=== PATIENT | male | born 1985 | race Caucasian/White ===

== ENCOUNTER 2020-02-23 05:47 | Day surgery (SDC) | payer OTHER ==
[~2020-02-23] VITALS: Ht 177.8 cm; Wt 74.8 kg
--- NOTE | ~2020-02-23 | OP ---
PATIENT NAME: MONO FRANCO MEDICAL RECORD: [id number] :81 LOCATION:D.[facility] ADMISSION DATE: SURGEON: ELIER BRUSH MD DATE OF OPERATION: 02/23/2020 PREOPERATIVE DIAGNOSIS: Rectal cancer, in need of IV access for chemotherapy. POSTOPERATIVE DIAGNOSIS: Rectal cancer, in need of IV access for chemotherapy. PROCEDURES: 1. Placement of left infraclavicular PowerPort under fluoroscopic guidance. 2. Immediate surgeon interpretation of the fluoroscopic images. SURGEON: Elier Brush MD EDGE SETTER: None. BLOOD LOSS: Minimal. ANESTHESIA: General. COMPLICATIONS: None. The risks, possible complications and alternatives to the procedure were explained to the patient. He elects to proceed. The discussion specifically included, but was not limited to, bleeding requiring emergency reoperation, infection, possibility that the port could flip, it could break, it could clot off or become infected. No radiologist was present for this procedure. Static fluoroscopic images were obtained and are kept in the PACS system. The surgeon interpretation of the radiographic images was dictated within the body of this operative note. OPERATIVE COURSE: The patient was conveyed to the operating room electively on 02/23/2020. General anesthesia was induced by the anesthesia staff. The left neck and left chest was sterilely prepped and draped. Under ultrasonographic guidance, I percutaneously accessed the left internal jugular vein in an antegrade fashion. A guidewire was passed easily. A small skin katarzyna was accomplished. A counterincision was accomplished in the left infraclavicular anterior-superior chest. Through this transverse incision, I dissected down to the pectoralis fascia. A subcutaneous pocket was created in a caudad direction. Through this pocket, I tunneled the PowerPort catheter. Over the wire, under fluoroscopic guidance, I advanced a dilator sheath. The dilator and wire were removed. Through the peel-away sheath, the PowerPort catheter was advanced. The sheath was then removed. I pulled back on the PowerPort catheter so that its tip was at the cavoatrial junction. I then cut the catheter. It was attached to the PowerPort. The locking device was firmly engaged. The port was then sutured with 3-point fixation to the underlying pectoralis fascia with 3-0 Prolenes. I irrigated with normal saline and the port pocket. Under real time fluoroscopy, there was no radiographic evidence of complication. No evidence of kinking or twisting of the catheter. No pneumothorax. An image over the mediastinum revealed that the tip of the catheter was near the cavoatrial junction. OPERATIVE REPORT [id number] MONO FRANCO The neck incision was closed in 2 layers with interrupted intramuscular 3-0 Vicryls and then interrupted intracuticular 3-0 Vicryls. At the chest incision, the subdermis was approximated with interrupted 3-0 Vicryls. The skin was approximated with a running intracuticular 3-0 Vicryl. I then percutaneously accessed the port, which accessed easily. It flushed easily and aspirated dark, nonpulsatile blood. It was then flushed with the appropriate amount of heparinized saline. Sterile dressings were applied. The patient was then extubated and conveyed to post-anesthesia care unit where he was in stable condition. There was no need for him to follow up with me in the office regarding this operative procedure unless he develops a complication related to it. It was my understanding that we were planning on a proctectomy sometime around June. He is going to undergo a radiation session today. I would recommend a high protein diet for this patient. He is being dismissed back to the custodial with a prescription for 10 of the [place] 5 mg tablets. TRANSINT:[id number] Voice Confirmation ID: [id number] DOCUMENT ID: [id number] ELIER BRUSH MD CC: TIFFANIE MANUEL MD, MELITA HANSON MD, JENN PITTS and [id number] DICTATION DATE: 02/23/20 111 HEALTH CARE MARKETING MANAGER: 02/23/20 1746 [facility] 02/23/20 [facility] [address] [place] [address]
[~2020-02-23 05:47] MED LIST: COLACE100 MG PO; HYDROCODON-ACE1 EAC7 PO
[2020-02-23] MEDS ORDERED: OMEPRAZOLE20 M1 PO (06:42)
[2020-02-23 07:00] LABS: CALC OSMOLALITY 281 mosm/kg (275-300); CALCIUM 8.6 mg/dL (8.5-10.1); CARBON DIOXIDE 34.6 mmol/L (21.0-32.0); CHLORIDE - SERUM 104 mmol/L (98-107); CREATININE - SERUM 0.9 mg/dL (0.6-1.3); GLUCOSE 98 mg/dL (74-106); POTASSIUM - SERUM 3.6 mmol/L (3.5-5.1); SODIUM 142 mmol/L (136-145); UREA NITROGEN 11 mg/dL (7-18); eGFR NON AFRICAN AMERICAN > 90 mL/min (90-120)
[2020-02-23 07:01] VITALS: BP 126/68; Ht 177.8 cm; Wt 74.8 kg
[2020-02-23 07:28] LABS: BASOPHILS 0.2 % (0-2); EOSINOPHILS 2.4 % (0-7); HEMATOCRIT 40.3 % (42.0-54.0); HEMOGLOBIN 12.6 g/dL (13.5-17.5); IMMATURE GRANULOCYTES 0.2 % (0-5); MCH 25.5 pg (26.0-34.0); MCHC 31.3 g/dL (31.0-37.0); MCV 81.4 fL (80.0-100.0); MEAN PLATELET VOLUME 10.7 fL (7.4-10.4); MONOCYTES 8.2 % (2-11); PLATELET COUNT 219 10x3/uL (130-400); RBC 4.95 10x6/uL (4.20-6.10); WBC 6.3 10x3/uL (4.8-10.8)
--- NOTE | 2020-02-23 12:15 | NUR ---
DISCHARGE INSTRUCTIONS PROVIDED AND PAPERWORK GIVEN TO ADC GUARDS.
== END 2020-02-23 12:25 ==
LOC: D.OPS 05:47
PROVIDERS: Anesthesiology; ATTEND Surgery
DX: C20 Malignant neoplasm of rectum (principal)

== ENCOUNTER 2020-07-03 06:08 | Outpatient (CLI) | payer OTHER ==
[~2020-07-03] VITALS: Ht 177.8 cm; Wt 75.0 kg
[~2020-07-03 06:08] MED LIST changes: +OMEPRAZOLE20 M1 PO
[2020-07-03 09:57] VITALS: BP 127/67; Ht 177.8 cm; Wt 75.0 kg
[2020-07-03 10:27] LABS: BASOPHILS 0.3 % (0-2); EOSINOPHILS 2.5 % (0-7); HEMATOCRIT 35.9 % (42.0-54.0); IMMATURE GRANULOCYTES 0.3 % (0-5); LYMPHOCYTES 13.8 % (15-50); MCH 28.2 pg (26.0-34.0); MCHC 33.4 g/dL (31.0-37.0); MCV 84.5 fL (80.0-100.0); MEAN PLATELET VOLUME 10.6 fL (7.4-10.4); MONOCYTES 10.9 % (2-11); NEUTROPHILS 72.2 % (40-80); RBC 4.25 10x6/uL (4.20-6.10); RDW 14.6 % (11.5-14.5); WBC 3.2 10x3/uL (4.8-10.8)
[2020-07-03 10:35] LABS: APTT 22.8 SECONDS (22.8-39.4); INR 1.03 (0.85-1.17); PLATELET COUNT 125 10x3/uL (130-400); PROTIME 13.4 SECONDS (11.6-15.0)
[2020-07-03 10:36] LABS: CALC OSMOLALITY 275 mosm/kg (275-300); CALCIUM 8.6 mg/dL (8.5-10.1); CARBON DIOXIDE 30.4 mmol/L (21.0-32.0); CHLORIDE - SERUM 106 mmol/L (98-107); CREATININE - SERUM 0.7 mg/dL (0.6-1.3); GLUCOSE 104 mg/dL (74-106); POTASSIUM - SERUM 3.9 mmol/L (3.5-5.1); SODIUM 139 mmol/L (136-145); UREA NITROGEN 8 mg/dL (7-18); eGFR NON AFRICAN AMERICAN > 90 mL/min (90-120)
--- NOTE | 2020-07-03 16:06 | NUR ---
1605 TATOO WITH ENDOMARK 2.5CC RECTALALLY
--- NOTE | 2020-07-03 16:26 | NUR ---
1624 CHANGED HIS MIND ON THE RECTAL BX AND ONLY TATOOED
--- NOTE | 2020-07-04 18:33 | HP ---
PATIENT: MONO FRANCO MEDICAL RECORD: [id number] ACCOUNT: [id number] LOCATION:D.CT : 81 ADMISSION DATE: 07/03/20 PCP: ELIER BRUSH MD HISTORY AND PHYSICAL EXAMINATION CHIEF COMPLAINT: Rectal cancer. HISTORY OF PRESENT ILLNESS: The patient has finished chemotherapy and radiation for his rectal cancer. He is to undergo surveillance proctosigmoidoscopy to see what the oncologic response that he has obtained and also tattoo the rectum in the hopes that we can perform a colorectal anastomosis in the future. HOME MEDICATIONS: Usp medicines, please see the list. ALLERGIES: No known drug allergies. PAST MEDICAL AND SURGICAL HISTORY: Vasectomy, port placement, colostomy, history of psoriasis. SOCIAL HISTORY: Nonsmoker. REVIEW OF SYSTEMS: Negative for CVA or seizures. Negative for diabetes or thyroid problems. PHYSICAL EXAMINATION: GENERAL: The patient does not appear acutely ill. He does not appear chronically ill. VITAL SIGNS: Reviewed. EARS: External ears appear normal. EYES: Extraocular movements are intact. NECK: Trachea is midline. CHEST: No intercostal retractions. PULMONARY: Nonlabored and no stridor. IMPRESSION: Rectal cancer, status post chemotherapy and radiation. PLAN: Proctosigmoidoscopy with possible biopsies and also tattooing. TRANSINT:[id number] Voice Confirmation ID: [id number] DOCUMENT ID: [id number] cc: FELIPA Bui at [facility]. ELIER BRUSH MD at 1833 CC: MELITA HANSON MD [id number] DICTATION DATE: 07/03/20 1549 RN DISEASE MANAGEMENT: 07/03/20 192 DEP CLI 07/03/20 [facility] [address] [place] [address]
--- NOTE | 2020-07-04 18:34 | OP ---
PATIENT NAME: MONO FRANCO MEDICAL RECORD: [id number] :81 LOCATION:D.CT ADMISSION DATE: SURGEON: ELIRE BRUSH MD DATE OF OPERATION: 07/03/2020 PREOPERATIVE DIAGNOSIS: Rectal cancer. POSTOPERATIVE DIAGNOSES: Rectal cancer with apparent complete endoscopic response to chemotherapy and radiation. Moderate hemorrhagic radiation proctitis. PROCEDURE: Flexible sigmoidoscopy with endoscopic tattooing. SURGEON: Elier Brush MD AIRPLANE TECHNICIAN: None. BLOOD LOSS: Minimal. ANESTHESIA: IV sedation. OPERATIVE COURSE: The patient was conveyed to endoscopy suite electively on 07/03/2020. The patient was positioned in the [place] position. A digital rectal examination was performed. A colonoscope was inserted through the anus. It was advanced 10 cm up above the rectum. There was a blind pouch. At 2 centimeter caudad to the blind pouch, I performed an endoscopic tattooing. This was so that I could identify the minimal margin that I needed to get distally when I perform the patient's rectal resection. The sclerotherapy needle was advanced. I placed in the submucosa 5 cc of Sharon ink injected submucosally as a tattoo. Radiation proctitis was noted. I utilized normal imaging as well as narrow band imaging to visualize the landaverde of the rectum. This blind pouch was a little curious and that I did not closed a portion of the rectum. In fact, the patient had a double barrel left lower quadrant colostomy to allow for decompression. Afferent colonic loop as well as the efferent colonic loop. I then went and inserted the colonoscope through the double barrel colostomy through the superior stoma or the cephalad most stoma and advanced this up along the descending colon. As the patient was unprepped and really there was no reason that he should have been prepped, all I saw was solid fecal material. I then withdrew the colonoscope. I advanced it through the caudad most stoma and advanced it and it terminated in a blind pouch as well. I saw no glandular material to biopsy. I withdrew the colonoscope. It appears that the area where the patient had a nearly obstructing cancer now has a complete obstruction there due to scar tissue. I believe he has had a complete endoscopic oncologic response. This does not necessarily mean that he has had a complete oncologic pathologic response, however. The area where the tumor was nearly obstructing, it is likely that the tumor was replaced by scar tissue and this scar tissue formed this occluded segment. The tapered area that I was just speaking about starts at 10 cm from the anus so the anastomosis is going to have to be a low anastomosis. I saw the patient in the post-procedural area. We discussed several options. One would be an abdominal perineal resection. Another one would be a proctectomy with colorectal anastomosis, which is essentially going to be a very OPERATIVE REPORT [id number] MONO FRANCO low anterior resection and that might be combined with reversal of the colostomy at that time or reversal of the diverting colostomy sometime in the future. We will get him on schedule to hopefully get this operation taken care of soon. TRANSINT:[id number] Voice Confirmation ID: [id number] DOCUMENT ID: [id number] ELIER BRUSH MD at 1834 CC: MELITA HANSON MD and JENN PITTS [id number] DICTATION DATE: 07/03/202032 COUNTRY SINGER: 07/04/20 0857 DEP CLI 07/03/20 [facility] [address] [place] [address]
== END 2020-07-03 17:35 | disposition home or self-care (01) ==
LOC: D.CT 06:08
PROVIDERS: Anesthesiology; ATTEND Internal Medicine Hematology & Oncology
DX: C20 Malignant neoplasm of rectum (principal); C19 Malignant neoplasm of rectosigmoid junction

== ENCOUNTER 2021-01-17 10:03 | Day surgery (SDC) | payer OTHER ==
[~2021-01-17] VITALS: Ht 177.8 cm; Wt 70.5 kg
[~2021-01-17 10:03] MED LIST changes: +ULTRAM50 MG PO
[2021-01-17 11:13] LABS: BASOPHILS 0.3 % (0-2); EOSINOPHILS 6.7 % (0-7); HEMOGLOBIN 9.5 g/dL (13.5-17.5); IMMATURE GRANULOCYTES 0.3 % (0-5); LYMPHOCYTE ABS# 0.41 10x3/uL (1.32-3.57); LYMPHOCYTES 13.7 % (15-50); MCH 27.9 pg (26.0-34.0); MCHC 32.8 g/dL (31.0-37.0); MCV 85.3 fL (80.0-100.0); MEAN PLATELET VOLUME 10.3 fL (7.4-10.4); NEUTROPHIL ABS# 2.09 10x3/uL (1.78-5.38); RDW 14.1 % (11.5-14.5)
[2021-01-17 11:14] LABS: PLATELET COUNT 140 10x3/uL (130-400)
[2021-01-17 11:48] LABS: CALC OSMOLALITY 281 mosm/kg (275-300); CALCIUM 8.5 mg/dL (8.5-10.1); CARBON DIOXIDE 28.8 mmol/L (21.0-32.0); CHLORIDE - SERUM 107 mmol/L (98-107); CREATININE - SERUM 0.9 mg/dL (0.6-1.3); GLUCOSE 87 mg/dL (74-106); POTASSIUM - SERUM 4.5 mmol/L (3.5-5.1); SODIUM 142 mmol/L (136-145); UREA NITROGEN 12 mg/dL (7-18); eGFR NON AFRICAN AMERICAN > 90 mL/min (90-120)
[2021-01-17 11:53] LABS: APTT 25.3 SECONDS (22.8-39.4); INR 1.25 (0.85-1.17); PROTIME 14.6 SECONDS (11.6-15.0)
[2021-01-17] MEDS ORDERED: GABAPENTIN100 MG (11:58)
[2021-01-17] MEDS ORDERED: PROBIOTIC250 MG (11:59)
[2021-01-17] MEDS ORDERED: IBUPROFEN400 MG (12:00)
[2021-01-17 12:03] VITALS: Ht 177.8 cm; Wt 70.5 kg
--- NOTE | 2021-01-17 15:45 | NUR ---
LEFT SIDED POWERPORT ACCESSED THIS AM WITHOUT DIFFICULTY. POSITIVE BLOOD RETURN. ACCESSED WITH STERILE TECHNIQUE AND DRSG PLACED. ACCESS REMOVED AFTER SALINE/HEPARIN FLUSH. DISCUSSED DISCHARGE INSTRUCTIONS AND PT VERBALIZED AN UNDERSTANDING. DRSG CDI AND VSS. DISCHARGED IN CARE OF ADC GUARDS WITHOUT C/O AN DPAIN 11/13
== END 2021-01-17 15:30 | disposition home or self-care (01) ==
LOC: D.SP 10:03 → D.CT 13:00 → D.SP 15:30
PROVIDERS: Radiology Diagnostic Radiology; ATTEND Internal Medicine Hematology & Oncology
DX: R59.1 Generalized enlarged lymph nodes (principal); C19 Malignant neoplasm of rectosigmoid junction; K59.00 Constipation, unspecified; D70.8 Other neutropenia; D64.9 Anemia, unspecified; D84.9 Immunodeficiency, unspecified; G62.0 Drug-induced polyneuropathy